=== PATIENT | female | born 1940 | race Asian ===

== ENCOUNTER 2017-02-12 14:22 | Outpatient (CLI) | payer OTHER ==
[~2017-02-12 14:22] MED LIST: FURO20TA67 PO; GRALISE600 MG PO; HUMALOG100 MG/ML SC; LANTUS100 MG/ML SC; OXYC5TAB53 PO; TRAM50TA PO
[2017-02-12 14:41] LABS: PLATELET COUNT 151 K/uL (152-353)
[2017-02-12 15:35] LABS: POTASSIUM 3.9 mmol/L (3.6-5.2)
== END 2017-02-12 19:16 | disposition home or self-care (01) ==
LOC: LABW 14:22
DX: M06.09 Rheumatoid arthritis without rheumatoid factor, multiple sites (principal); M15.0 Primary generalized (osteo)arthritis; M47.817 Spondylosis without myelopathy or radiculopathy, lumbosacral region; M54.5 Low back pain; M79.7 Fibromyalgia
CPT/HCPCS: 80053; 85027; 85651; 86140

== ENCOUNTER 2017-03-21 09:15 | Outpatient (CLI) | payer OTHER | END 2017-03-21 19:05 | disposition home or self-care (01) | LOC: MAMMO 09:15 | DX: Z85.3 Personal history of malignant neoplasm of breast (principal) | CPT/HCPCS: G0206-TC ==

== ENCOUNTER 2017-05-17 09:43 | Outpatient (CLI) | payer OTHER | END 2017-05-17 11:00 | disposition home or self-care (01) | LOC: RAD 09:43 | DX: M85.89 Other specified disorders of bone density and structure, multiple sites (principal) ==

== ENCOUNTER 2017-07-01 13:17 | Outpatient (CLI) | payer OTHER ==
[2017-07-01 14:34] LABS: PLATELET COUNT 144 K/uL (152-353)
[2017-07-01 14:50] LABS: POTASSIUM 3.7 mmol/L (3.6-5.2); SODIUM 136 mmol/L (136-145)
== END 2017-07-01 19:24 | disposition home or self-care (01) ==
LOC: LABW 13:17
PROVIDERS: Family Medicine
DX: R51 Headache (principal); R53.1 Weakness; I10 Essential (primary) hypertension; I48.91 Unspecified atrial fibrillation; R11.0 Nausea
CPT/HCPCS: 36415; 80053; 82272; 82550; 83735; 84439; 84443; 84484; 85027; 87015; 87045; 87205; 87328; 87329; 87899; 93005

== ENCOUNTER 2017-07-05 15:41 | Outpatient (CLI) | payer OTHER | END 2017-07-05 20:09 | disposition home or self-care (01) | LOC: CT 15:41 | DX: R51 Headache (principal); R53.1 Weakness; I10 Essential (primary) hypertension; I48.91 Unspecified atrial fibrillation; R11.0 Nausea ==

== ENCOUNTER 2017-07-06 11:15 | Outpatient (CLI) | payer OTHER | END 2017-07-06 19:00 | disposition home or self-care (01) | LOC: LABW 11:15 | PROVIDERS: Family Medicine | DX: R53.1 Weakness (principal); I48.0 Paroxysmal atrial fibrillation; E11.9 Type 2 diabetes mellitus without complications; I10 Essential (primary) hypertension; E55.9 Vitamin D deficiency, unspecified | CPT/HCPCS: 36415; 80061; 81000; 82306; 83036 ==

== ENCOUNTER 2017-08-06 12:20 | Emergency (ER) | payer OTHER ==
[~2017-08-06] VITALS: Ht 167.6 cm; Wt 56.7 kg
[2017-08-06 12:30] VITALS: TEMP 98
[2017-08-06 13:18] VITALS: BP 182/78
== END 2017-08-06 13:18 | disposition home or self-care (01) ==
LOC: ED 12:20
DX: S05.12XA Contusion of eyeball and orbital tissues, left eye, initial encounter (principal); S00.12XA Contusion of left eyelid and periocular area, initial encounter; W07.XXXA Fall from chair, initial encounter; Y92.098 Other place in other non-institutional residence as the place of occurrence of the external cause
CPT/HCPCS: 99282

== ENCOUNTER 2017-09-09 15:06 | Outpatient (CLI) | payer OTHER | END 2017-09-09 16:10 | disposition home or self-care (01) | LOC: RAD 15:06 | DX: I10 Essential (primary) hypertension (principal); R10.84 Generalized abdominal pain ==

== ENCOUNTER 2017-12-08 06:35 | Observation (INO) | payer OTHER ==
[~2017-12-08] VITALS: Ht 165.1 cm; Wt 81.4 kg
[2017-12-08 07:03] VITALS: BP 211/107; TEMP 98.6
[2017-12-08 07:22] LABS: PLATELET COUNT 154 K/uL (152-353)
[2017-12-08 07:51] LABS: POTASSIUM 3.9 mmol/L (3.6-5.2)
[2017-12-08 09:17] VITALS: BP 174/75; TEMP 98.2
[2017-12-08 11:38] VITALS: BP 146/65; TEMP 98.8; Ht 165.1 cm; Wt 81.4 kg
[2017-12-08] MEDS ORDERED: SIMV10TA PO (13:24)
[2017-12-08] MEDS ORDERED: ACET-655 PO (13:25)
[2017-12-08] MEDS ORDERED: VALS160T2 PO (13:26)
[2017-12-08] MEDS ORDERED: PACERONE200 MG OR (13:27)
[2017-12-08] MEDS ORDERED: CLOP75TA2 PO (13:27)
[2017-12-08] MEDS ORDERED: D32000 UNIT OR (13:28)
[2017-12-08] MEDS ORDERED: ASCO500T18 PO (13:28)
[2017-12-08] MEDS ORDERED: SUPER B COM1 OR (13:28)
[2017-12-08 16:00] VITALS: BP 143/55; TEMP 98.8
[2017-12-08 20:00] VITALS: BP 159/68; TEMP 99.6
[2017-12-09] VITALS: BP 138/58; TEMP 98.4
[2017-12-09 04:00] VITALS: BP 135/56; TEMP 97.8
[2017-12-09 06:22] LABS: PLATELET COUNT 134 K/uL (152-353)
[2017-12-09 06:26] LABS: POTASSIUM 3.5 mmol/L (3.6-5.2)
[2017-12-09 08:00] VITALS: BP 165/73; TEMP 98.3
[2017-12-09 12:00] VITALS: BP 159/74; TEMP 98.3
[2017-12-09 15:51] VITALS: BP 166/79; TEMP 99
[2017-12-09 19:47] VITALS: BP 174/77; TEMP 98.5
[2017-12-10] VITALS (7 sets, daily range): BP systolic 143–204; BP diastolic 72–97; TEMP 98.2–98.9
[2017-12-10 05:36] LABS: PLATELET COUNT 151 K/uL (152-353)
[2017-12-10 05:58] LABS: POTASSIUM 3.6 mmol/L (3.6-5.2)
[2017-12-11 04:00] VITALS: BP 149/79; TEMP 98.1
[2017-12-11 04:08] LABS: PLATELET COUNT 159 K/uL (152-353)
[2017-12-11 04:27] LABS: POTASSIUM 3.3 mmol/L (3.6-5.2)
[2017-12-11 20:00] VITALS: BP 152/72; TEMP 98.5
[2017-12-12] VITALS: BP 138/75; TEMP 98.2
[2017-12-12 04:00] VITALS: BP 161/72; TEMP 98.2
[2017-12-12 05:45] LABS: PLATELET COUNT 175 K/uL (152-353)
[2017-12-12 06:03] LABS: POTASSIUM 3.6 mmol/L (3.6-5.2)
[2017-12-12 08:00] VITALS: BP 158/76; TEMP 99.1
[2017-12-12 11:53] VITALS: BP 153/84; TEMP 98.4
== END 2017-12-12 13:00 | disposition home or self-care (01) ==
LOC: ED 06:35 → MED/SURG 08:55
PROVIDERS: ADMIT Family Medicine
DX: N10 Acute pyelonephritis (principal); B96.20 Unspecified Escherichia coli [E. coli] as the cause of diseases classified elsewhere; I12.9 Hypertensive chronic kidney disease with stage 1 through stage 4 chronic kidney disease, or unspecified chronic kidney disease; E11.22 Type 2 diabetes mellitus with diabetic chronic kidney disease; N18.3 Chronic kidney disease, stage 3 (moderate); I25.10 Atherosclerotic heart disease of native coronary artery without angina pectoris; I48.91 Unspecified atrial fibrillation; E86.0 Dehydration; E78.4 Other hyperlipidemia; N76.0 Acute vaginitis; K59.09 Other constipation
CPT/HCPCS: 36415; 51702; 74022; 80053; 81000; 82948; 85027; 87077; 87086; 87088; 87186; 96365; 96366; 96367; 96372; 96374; 96375; 99220; 99284; G0378; J0744; J1815; J1885; J2270; J2405; J3490

== ENCOUNTER 2017-12-20 13:58 | Emergency (ER) | payer OTHER ==
[~2017-12-20] VITALS: Ht 167.6 cm; Wt 78.9 kg
[~2017-12-20 13:58] MED LIST changes: +ACET-655 PO; +ASCO500T18 PO; +CLOP75TA2 PO; +D32000 UNIT OR; +PACERONE200 MG OR; +SIMV10TA PO; +SUPER B COM1 OR; +VALS160T2 PO
[2017-12-20 15:58] LABS: PLATELET COUNT 184 K/uL (152-353)
[2017-12-20 16:17] LABS: POTASSIUM 3.8 mmol/L (3.6-5.2)
[2017-12-20 17:24] VITALS: BP 164/85; TEMP 100.1
== END 2017-12-20 18:00 | disposition home or self-care (01) ==
LOC: ED 13:58
PROVIDERS: Family Medicine
DX: B34.9 Viral infection, unspecified (principal)
CPT/HCPCS: 36415; 80053; 81000; 85027; 87040; 87081; 87804; 87880; 96361; 96365; 99284; J0696

== ENCOUNTER 2018-05-20 13:48 | Outpatient (CLI) | payer OTHER | END 2018-05-20 21:55 | disposition home or self-care (01) | LOC: MAMMO 13:48 | DX: Z85.3 Personal history of malignant neoplasm of breast (principal) ==

== ENCOUNTER 2018-07-05 22:48 | Emergency (ER) | payer OTHER ==
[~2018-07-05] VITALS: Ht 160 cm; Wt 78.9 kg
[2018-07-05 23:49] LABS: PLATELET COUNT 129 K/uL (152-353)
[2018-07-05 23:55] LABS: POTASSIUM 4.1 mmol/L (3.6-5.2)
[2018-07-06 01:08] VITALS: BP 154/92; TEMP 98.8
== END 2018-07-06 01:09 | disposition home or self-care (01) ==
LOC: ED 22:48
PROVIDERS: Allergy & Immunology
DX: J02.0 Streptococcal pharyngitis (principal); R00.0 Tachycardia, unspecified
CPT/HCPCS: 36415; 80053; 81000; 84484; 85027; 87880; 93005; 96365; 99284; J0696

== ENCOUNTER 2018-07-23 11:18 | Outpatient (CLI) | payer OTHER | END 2018-07-23 11:24 | disposition short-term general hospital (02) | LOC: AMB 11:18 | DX: R00.0 Tachycardia, unspecified (principal); R53.1 Weakness | CPT/HCPCS: A0425; A0427 ==

== ENCOUNTER 2018-07-23 11:25 | Emergency (ER) | payer OTHER ==
[~2018-07-23] VITALS: Ht 160 cm; Wt 78.9 kg
[2018-07-23 11:23] VITALS: TEMP 97.7
[2018-07-23 12:45] LABS: PLATELET COUNT 159 K/uL (152-353)
[2018-07-23 12:48] LABS: POTASSIUM 3.8 mmol/L (3.6-5.2); SODIUM 138 mmol/L (136-145)
[2018-07-23 13:14] VITALS: BP 164/87
== END 2018-07-23 13:18 | disposition home or self-care (01) ==
LOC: ED 11:25
PROVIDERS: Emergency Medicine
DX: R55 Syncope and collapse (principal); R00.0 Tachycardia, unspecified
CPT/HCPCS: 80053; 81000; 82550; 82553; 84484; 85027; 93005; 99283

== ENCOUNTER 2018-12-02 10:34 | Outpatient (CLI) | payer OTHER ==
[2018-12-02 11:09] LABS: PLATELET COUNT 164 K/uL (152-353)
== END 2018-12-02 23:01 | disposition home or self-care (01) ==
LOC: LABW 10:34
PROVIDERS: Family Medicine
DX: E11.9 Type 2 diabetes mellitus without complications (principal); I10 Essential (primary) hypertension; E78.2 Mixed hyperlipidemia; E55.9 Vitamin D deficiency, unspecified; K21.9 Gastro-esophageal reflux disease without esophagitis; I63.9 Cerebral infarction, unspecified
CPT/HCPCS: 36415; 80053; 80061; 81000; 82306; 83036; 83735; 84439; 84443; 84550; 85027

== ENCOUNTER 2019-01-30 09:44 | Outpatient (CLI) | payer OTHER ==
[2019-01-30 10:02] LABS: PLATELET COUNT 157 K/uL (152-353)
[2019-01-30 10:28] LABS: POTASSIUM 4.1 mmol/L (3.6-5.2)
== END 2019-01-30 19:10 | disposition home or self-care (01) ==
LOC: LABW 09:44
PROVIDERS: Family Medicine
DX: K21.9 Gastro-esophageal reflux disease without esophagitis (principal); E11.9 Type 2 diabetes mellitus without complications; I10 Essential (primary) hypertension; N18.3 Chronic kidney disease, stage 3 (moderate)
CPT/HCPCS: 80053; 80061; 81000; 82306; 83036; 83735; 84439; 84443; 84550; 85027

== ENCOUNTER 2019-06-16 09:28 | Outpatient (CLI) | payer OTHER | END 2019-06-16 22:26 | disposition home or self-care (01) | LOC: RESP 09:28 | DX: I48.91 Unspecified atrial fibrillation (principal); I10 Essential (primary) hypertension; E11.9 Type 2 diabetes mellitus without complications | CPT/HCPCS: 93306 ==

== ENCOUNTER 2019-08-11 14:01 | Outpatient (CLI) | payer OTHER ==
[2019-08-11 14:31] LABS: PLATELET COUNT 121 K/uL (152-353)
[2019-08-11 15:39] LABS: POTASSIUM 3.6 mmol/L (3.6-5.2)
== END 2019-08-11 23:20 | disposition home or self-care (01) ==
LOC: LABW 14:01
PROVIDERS: Internal Medicine Gastroenterology
DX: R10.13 Epigastric pain (principal)
CPT/HCPCS: 36415; 80053; 82150; 83516; 83690; 85027; 86140

== ENCOUNTER 2019-09-01 12:31 | Outpatient (CLI) | payer OTHER | END 2019-09-01 20:13 | disposition home or self-care (01) | LOC: RAD 12:31 | DX: N39.0 Urinary tract infection, site not specified (principal); R10.84 Generalized abdominal pain ==

== ENCOUNTER 2019-09-18 14:10 | Outpatient (CLI) | payer OTHER | END 2019-09-18 21:57 | disposition home or self-care (01) | LOC: RAD 14:10 | DX: G89.4 Chronic pain syndrome (principal); I10 Essential (primary) hypertension; S69.92XA Unspecified injury of left wrist, hand and finger(s), initial encounter; K21.9 Gastro-esophageal reflux disease without esophagitis ==

== ENCOUNTER 2019-12-04 15:30 | Outpatient (CLI) | payer OTHER | END 2019-12-04 16:00 | disposition home or self-care (01) | LOC: RAD 15:30 | DX: G89.4 Chronic pain syndrome (principal); G62.89 Other specified polyneuropathies; M54.32 Sciatica, left side; M54.5 Low back pain ==

== ENCOUNTER 2020-02-15 16:02 | Outpatient (CLI) | payer OTHER | END 2020-02-15 20:51 | disposition home or self-care (01) | LOC: RAD 16:02 | DX: G89.4 Chronic pain syndrome (principal); M25.561 Pain in right knee; M79.18 Myalgia, other site ==

== ENCOUNTER 2020-06-24 15:31 | Outpatient (CLI) | payer OTHER | END 2020-06-24 20:04 | disposition home or self-care (01) | LOC: MRI 15:31 | DX: R51 Headache (principal) ==

== ENCOUNTER 2020-08-31 11:07 | Outpatient (CLI) | payer OTHER | END 2020-08-31 22:58 | disposition home or self-care (01) | LOC: CT 11:07 | DX: R10.84 Generalized abdominal pain (principal); Z85.3 Personal history of malignant neoplasm of breast; K21.9 Gastro-esophageal reflux disease without esophagitis; M25.559 Pain in unspecified hip | CPT/HCPCS: 36415; 82565; 84520; Q9963 ==

== ENCOUNTER 2020-12-22 12:56 | Outpatient (CLI) | payer OTHER | END 2020-12-22 23:46 | disposition home or self-care (01) | LOC: LAB 12:56 | PROVIDERS: ATTEND Family Medicine | DX: U07.1 COVID-19 (principal); Z20.828 Contact with and (suspected) exposure to other viral communicable diseases; R50.9 Fever, unspecified; J02.9 Acute pharyngitis, unspecified; R53.1 Weakness | CPT/HCPCS: 87635; G2023; U0003 ==

== ENCOUNTER 2021-02-13 15:53 | Outpatient (CLI) | payer OTHER ==
[2021-02-13 16:31] LABS: PLATELET COUNT 141 K/uL (152-353)
== END 2021-02-13 21:00 | disposition home or self-care (01) ==
LOC: LABW 15:53
PROVIDERS: ATTEND Internal Medicine
DX: R53.83 Other fatigue (principal); R16.0 Hepatomegaly, not elsewhere classified; E11.8 Type 2 diabetes mellitus with unspecified complications; I50.21 Acute systolic (congestive) heart failure; I11.0 Hypertensive heart disease with heart failure
CPT/HCPCS: 36415; 80048; 80076; 82043; 83880; 84439; 84443; 85027

== ENCOUNTER 2022-02-26 13:04 | Outpatient (CLI) | payer OTHER | END 2022-02-26 19:24 | disposition home or self-care (01) | LOC: CT 13:04 | PROVIDERS: ATTEND Family Medicine | DX: R51.9 Headache, unspecified (principal); I10 Essential (primary) hypertension; Z86.73 Personal history of transient ischemic attack (TIA), and cerebral infarction without residual deficits; Z87.828 Personal history of other (healed) physical injury and trauma; Z12.31 Encounter for screening mammogram for malignant neoplasm of breast; Z78.0 Asymptomatic menopausal state; N64.4 Mastodynia; Z09 Encounter for follow-up examination after completed treatment for conditions other than malignant neoplasm | CPT/HCPCS: G0279 ==

== ENCOUNTER 2023-01-30 11:38 | Emergency (ER) | payer OTHER ==
[~2023-01-30] VITALS: Ht 165.1 cm; Wt 73.0 kg
[2023-01-30 11:43] VITALS: BP 138/50; TEMP 97.7
[2023-01-30 12:49] LABS: PLATELET COUNT 139 K/uL (152-353)
[2023-01-30 12:56] LABS: POTASSIUM 4.2 mmol/L (3.6-5.2)
[2023-01-30 13:05] LABS: PARTIAL THROMBOPLASTIN TIME 27.4 SECONDS (24.5-33.6)
== END 2023-01-30 13:54 | disposition left against medical advice (07) ==
LOC: ED 11:38
PROVIDERS: Emergency Medicine
DX: R77.8 Other specified abnormalities of plasma proteins (principal); Z53.29 Procedure and treatment not carried out because of patient's decision for other reasons; I48.91 Unspecified atrial fibrillation; R06.02 Shortness of breath
CPT/HCPCS: 80053; 83880; 84484; 85027; 85610; 85730; 93005; 99283

== ENCOUNTER 2023-02-18 16:54 | Outpatient (CLI) | payer OTHER | END 2023-02-18 19:02 | disposition home or self-care (01) | LOC: RAD 16:54 | PROVIDERS: ATTEND Family Medicine | DX: M54.2 Cervicalgia (principal); S29.9XXA Unspecified injury of thorax, initial encounter; M25.511 Pain in right shoulder; Y92.89 Other specified places as the place of occurrence of the external cause ==

== ENCOUNTER 2023-02-26 13:54 | Outpatient (CLI) | payer OTHER ==
[2023-02-26 14:21] LABS: PLATELET COUNT 175 K/uL (152-353)
== END 2023-02-26 22:24 | disposition home or self-care (01) ==
LOC: RAD 13:54
PROVIDERS: ATTEND Family Medicine
DX: R10.819 Abdominal tenderness, unspecified site (principal); W19.XXXA Unspecified fall, initial encounter
CPT/HCPCS: 36415; 81002; 85027

== ENCOUNTER 2023-05-10 14:42 | Emergency (ER) | payer OTHER ==
[~2023-05-10] VITALS: Ht 167.6 cm; Wt 78.0 kg
[2023-05-10 14:42] VITALS: TEMP 98.7
[2023-05-10 14:55] LABS: PLATELET COUNT 175 K/uL (152-353)
[2023-05-10 15:04] LABS: PARTIAL THROMBOPLASTIN TIME 30.8 SECONDS (23.9-36.7); POTASSIUM 3.6 mmol/L (3.6-5.2)
[2023-05-10 19:15] VITALS: BP 169/73
== END 2023-05-10 19:18 | disposition home or self-care (01) ==
LOC: ED 14:42
PROVIDERS: Family Medicine
DX: R07.9 Chest pain, unspecified (principal); R10.9 Unspecified abdominal pain
CPT/HCPCS: 80053; 80307; 81000; 82150; 82550; 83605; 83690; 84484; 85027; 85610; 85730; 87086; 87088; 93005; 96365; 96375; 99284; J0696; J2405

== ENCOUNTER 2023-06-06 00:48 | Emergency (ER) | payer OTHER ==
[~2023-06-06] VITALS: Ht 167.6 cm; Wt 72.6 kg
[2023-06-06 01:22] LABS: PLATELET COUNT 225 K/uL (152-353)
[2023-06-06 07:45] VITALS: BP 153/62; TEMP 98.4
== END 2023-06-06 07:50 | disposition short-term general hospital (02) ==
LOC: ED 00:48
PROVIDERS: Family Medicine
DX: R07.9 Chest pain, unspecified (principal); R77.8 Other specified abnormalities of plasma proteins
CPT/HCPCS: 36415; 80053; 81002; 84484; 85027; 93005; 96360; 96361; 99284